=== PATIENT | female | born 1950 | race Asian ===

== ENCOUNTER 2020-02-03 16:59 | Emergency (ER) | payer OTHER ==
[~2020-02-03] VITALS: Ht 157.5 cm; Wt 50.8 kg
[2020-02-03 18:04] LABS: PLATELET COUNT 325 K/uL (152-353)
[2020-02-03 18:05] VITALS: BP 118/47; TEMP 98.6
[2020-02-03] MEDS ORDERED: ALBUTEROL0.083 % INH (20:03)
[2020-02-03] MEDS ORDERED: HYDR5TAB9 PO (20:04)
[2020-02-03] MEDS ORDERED: CALCIUM 500+D PO (20:05)
[2020-02-03] MEDS ORDERED: ALBUSOL INH (20:06)
[2020-02-03] MEDS ORDERED: PEPCID20 MG PO (20:07)
[2020-02-03] MEDS ORDERED: MULT VITAMIN PO (20:07)
[2020-02-03] MEDS ORDERED: D32000 UNIT PO (20:08)
[2020-02-03] MEDS ORDERED: LISI5TAB10 PO (20:09)
[2020-02-03] MEDS ORDERED: DILT30TA24 PO (20:10)
[2020-02-03] MEDS ORDERED: DOXYCYCLINE100 MG PO (20:11)
[2020-02-03] MEDS ORDERED: FLUPHENAZINE5 MG PO (20:12)
[2020-02-03] MEDS ORDERED: PHENYTOIN EX100 MG PO (20:13)
[2020-02-03] MEDS ORDERED: PREDNISONE5 MG PO (20:13)
[2020-02-03] MEDS ORDERED: SENNA PLUS 50-81 CAP PO (20:14)
== END 2020-02-03 18:05 | disposition other institution (70) ==
LOC: ED 16:59
PROVIDERS: Family Medicine
DX: Z91.14 Patient's other noncompliance with medication regimen (principal); R46.89 Other symptoms and signs involving appearance and behavior; Z11.59 Encounter for screening for other viral diseases; Z04.6 Encounter for general psychiatric examination, requested by authority
CPT/HCPCS: 80053; 81000; 85027; 87635; 93005; 99283; U0003

== ENCOUNTER 2020-12-09 17:51 | Emergency (ER) | payer OTHER ==
[~2020-12-09] VITALS: Ht 157.5 cm; Wt 48.1 kg
[2020-12-09 17:51] VITALS: BP 112/55; TEMP 98.6
[~2020-12-09 17:51] MED LIST: ABILIFY MYCITE10 MG PO; ALBUSOL INH; ALBUTEROL0.083 % INH; CALCIUM 500+D PO; D32000 UNIT PO; DILT30TA24 PO; DOXYCYCLINE100 MG PO; FLUPHENAZINE5 MG PO; HYDR5TAB9 PO; LISI5TAB10 PO; MULT VITAMIN PO; PEPCID20 MG PO; PHENYTOIN EX100 MG PO; PREDNISONE5 MG PO; SENNA PLUS 50-81 CAP PO; [UNRECOGNIZED DRUG - CODE] NAS
[2020-12-09 19:32] LABS: PLATELET COUNT 175 K/uL (152-353)
[2020-12-09 19:40] LABS: POTASSIUM 4.3 mmol/L (3.6-5.2)
[2020-12-09] MEDS ORDERED: ASCO500T18 PO (21:48)
[2020-12-09] MEDS ORDERED: BREO ELLIPTA 201 INH INH (21:51)
[2020-12-09] MEDS ORDERED: CALCIUM 600+D 61 TA1 PO (21:53)
[2020-12-09] MEDS ORDERED: [UNRECOGNIZED DRUG - OTHER] PO (21:55)
[2020-12-09] MEDS ORDERED: MIRALAX17 GM/SCOO PO ×2 (21:57)
[2020-12-09] MEDS ORDERED: MELATONIN1 M1 PO (22:00)
[2020-12-09] MEDS ORDERED: GUAI600T70 PO (22:01)
[2020-12-09] MEDS ORDERED: LYRICA50 MG PO (22:04)
[2020-12-09] MEDS ORDERED: [UNRECOGNIZED DRUG - OTHER] NAS (22:09)
[2020-12-09] MEDS ORDERED: B-1100 MG PO (22:11)
[2020-12-09] MEDS ORDERED: TRAZ50TA36 PO (22:12)
[2020-12-09] MEDS ORDERED: VITAMIN D31000 UNI4 PO (22:13)
== END 2020-12-09 20:14 | disposition still patient (30) ==
LOC: ED 17:51
PROVIDERS: Hospitalist
DX: F25.8 Other schizoaffective disorders (principal); F31.89 Other bipolar disorder; Z11.52 Encounter for screening for COVID-19; Z04.6 Encounter for general psychiatric examination, requested by authority
CPT/HCPCS: 36415; 80053; 80185; 85027; 87635; 93005; 99283; U0003

== ENCOUNTER 2020-12-21 08:17 | Observation (INO) | payer OTHER ==
[~2020-12-21 08:17] MED LIST changes: +ASCO500T18 PO; +B-1100 MG PO; +BREO ELLIPTA 201 INH INH; +CALCIUM 600+D 61 TA1 PO; +GUAI600T70 PO; +LYRICA50 MG PO; +MELATONIN1 M1 PO; +MIRALAX17 GM/SCOO PO; +TRAZ50TA36 PO; +VITAMIN D31000 UNI4 PO; +[UNRECOGNIZED DRUG - OTHER] NAS; +[UNRECOGNIZED DRUG - OTHER] PO
[2021-01-02 12:28] LABS: POTASSIUM 4.1 mmol/L (3.6-5.2)
[2021-01-02 12:30] LABS: PLATELET COUNT 198 K/uL (152-353)
== END 2020-12-22 16:00 | disposition other institution (70) ==
LOC: ED 08:17 → PCU 11:20
PROVIDERS: ADMIT Family Medicine; ATTEND Internal Medicine Endocrinology, Diabetes & Metabolism
DX: J44.1 Chronic obstructive pulmonary disease with (acute) exacerbation (principal); I25.10 Atherosclerotic heart disease of native coronary artery without angina pectoris; G40.802 Other epilepsy, not intractable, without status epilepticus; Z95.0 Presence of cardiac pacemaker; J96.01 Acute respiratory failure with hypoxia; I27.20 Pulmonary hypertension, unspecified
CPT/HCPCS: 36415; 36600; 80053; 82805; 84484; 85027; 87635; 93005; 96360; 96365; 96375; 99220; 99285; G0378; U0003

== ENCOUNTER 2020-12-26 21:40 | Inpatient (IN) | payer OTHER | END 2020-12-27 20:20 | disposition E | DRG 189 | LOC: ED 21:40 → ICU 23:00 | PROVIDERS: ADMIT Hospitalist; ATTEND Internal Medicine | DX: J96.01 Acute respiratory failure with hypoxia (principal); J44.1 Chronic obstructive pulmonary disease with (acute) exacerbation; G40.802 Other epilepsy, not intractable, without status epilepticus; N17.8 Other acute kidney failure; R00.0 Tachycardia, unspecified; E86.0 Dehydration; I95.89 Other hypotension; R41.82 Altered mental status, unspecified; I46.9 Cardiac arrest, cause unspecified | CPT/HCPCS: 36415; 36600; 51702; 82550; 82553; 82805; 84484; 93005; 94640; 94664; 94760; 96360; 96361; 96365; 96366; 96375; 99285; J1956; J2060; J2405; J2930 ==